=== PATIENT | female | born 1995 | race American Indian/Alaskan Native ===

== ENCOUNTER 2018-11-07 14:12 | Emergency (ER) | payer MEDICAID ==
--- NOTE | 2018-11-07 14:38 | Emergency Department Report ---
Blank Doc - Documentation Documentation: This is a 22-year-old female that presents with right sided lower back pain. Denies any N/V. This initial assessment/diagnostic orders/clinical plan/treatment(s) is/are subject to change based on patient's health status, clinical progression and re- assessment by fellow clinical providers in the ED. Further treatment and workup at subsequent clinical providers discretion. Patient/guardians urged not to elope from the ED as their condition may be serious if not clinically assessed and managed. Initial orders include: 1- Patient sent to [facility] for further evaluation and treatment 2- UA 3- labs
[2018-11-07 14:50] LABS: Basophils % (Auto) 0.6 % (0.0-1.8); Eosinophils # (Auto) 0.1 K/mm3 (0.0-0.4); Eosinophils % (Auto) 1.2 % (0.0-4.3); Hematocrit 36.4 % (30.3-42.9); Lymphocytes # (Auto) 2.3 K/mm3 (1.2-5.4); Lymphocytes % (Auto) 31.3 % (13.4-35.0); Mean Corpuscular HGB Conc 36 % (30-34); Mean Corpuscular Volume 90 fl (79-97); Monocytes # (Auto) 0.6 K/mm3 (0.0-0.8); Monocytes % (Auto) 8.9 % (0.0-7.3); Platelet Count 246 K/mm3 (140-440); Red Blood Count 4.06 M/mm3 (3.65-5.03); Red Cell Distribution Width 12.3 % (13.2-15.2)
[2018-11-07 15:07] LABS: Alanine Aminotransferase 14 units/L (7-56); Albumin 4.3 g/dL (3.9-5); BUN/Creatinine Ratio 16; Blood Urea Nitrogen 8 mg/dL (7-17); Calcium 9.2 mg/dL (8.4-10.2); Hemolysis Index 13
[2018-11-07 15:10] LABS: Bilirubin,Direct < 0.2 mg/dL (0-0.2)
[2018-11-07 17:05] LABS: Bilirubin,Urine NEG (Negative); Blood,Urine NEG (Negative); Color,Urine Yellow (Yellow); Mucus,Urine FEW /HPF; Protein,Urine <15 mg/dL mg/dL (Negative); Urobilinogen,Urine < 2.0 mg/dL (<2.0)
[2018-11-07 17:07] LABS: HCG Qualitative,Urine Negative (Negative)
--- NOTE | 2018-11-07 18:02 | Emergency Department Report ---
ED Abdominal Pain HPI - General Chief Complaint: Abdominal Pain Stated Complaint: STOMACH PAIN Time Seen by Provider: 11/07/18 14:33 Source: patient Mode of arrival: Ambulatory Limitations: No Limitations - History of Present Illness Initial Comments: This is a 22 year-old who presents to ED complaining of low pelvic cramping and a menorrhea 4 months. Patient states that her last menstrual period was June 2018. Patient states that cramping like pain is localized to her low pelvic region. Patient describes pain as aching intermittently has been going on for the past 2-3 months. Patient states she state couple of home tests that were negative. Patient presents to be evaluated. She denies nausea/vomiting/dysuria/vaginal discharge/dizziness/chest pain/shortness of breath such fever/diarrhea or any other problems. -: Gradual Radiation: none Migration to: no migration Severity scale (0 -10): 9 Quality: aching - Related Data Previous Rx's Medication Instructions Recorded Last Taken Type Ibuprofen [Motrin] 800 mg PO Q8HR #20 tablet 11/07/18 Unknown Rx Allergies Allergy/AdvReac Type Severity Reaction Status Date / Time amoxicillin Allergy Unknown Verified 11/07/18 14:13 Penicillins Allergy Unknown Verified 11/07/18 14:14 ED Review of Systems ROS: Stated complaint: STOMACH PAIN Other details as noted in HPI Comment: All other systems reviewed and negative ED Past Medical Hx - Past Medical History Hx Hypertension: Yes - Surgical History Past Surgical History?: No - Social History Smoking Status: Never Smoker Substance Use Type: None - Medications Home Medications: Home Medications Medication Instructions Recorded Confirmed Last Taken Type Ibuprofen [Motrin] 800 mg PO Q8HR #20 tablet 11/07/18 Unknown Rx ED Physical Exam - General Limitations: No Limitations General appearance: alert, in no apparent distress - Head Head exam: Present: atraumatic, normocephalic - Eye Eye exam: Present: normal appearance - ENT ENT exam: Present: mucous membranes moist - Neck Neck exam: Present: normal inspection - Respiratory Respiratory exam: Present: normal lung sounds bilaterally. Absent: respiratory distress, wheezes - Cardiovascular Cardiovascular Exam: Present: regular rate, normal rhythm. Absent: systolic murmur, diastolic murmur, rubs, gallop - GI/Abdominal GI/Abdominal exam: Present: soft, normal bowel sounds. Absent: distended, tenderness, guarding, mass - Extremities Exam Extremities exam: Present: normal inspection - Back Exam Back exam: Present: normal inspection - Neurological Exam Neurological exam: Present: alert, oriented X3 - Psychiatric Psychiatric exam: Present: normal affect, normal mood - Skin Skin exam: Present: warm, dry, intact, normal color. Absent: rash ED Course Vital Signs 11/07/18 14:34 Temperature 98.2 F Pulse Rate 83 Respiratory 18 Rate Blood Pressure 120/68 O2 Sat by Pulse 97 Oximetry ED Medical Decision Making - Lab Data Result diagrams: 11/07/18 14:41 11/07/18 14:41 - Medical Decision Making This is a 22-year-old female who presents to ED for chronic pelvic pain Patient is not on any form of control. Blood tests negative for , although is within normal limits. Discussed findings with the patient. Discussed to follow up with [facility] as referred. Patient is in no acute distress she understands instructions and is to follow Critical care attestation.: If time is entered above; I have spent that time in minutes in the direct care of this critically ill patient, excluding procedure time. ED Disposition Clinical Impression: Amenorrhea, secondary Disposition: DC-01 TO HOME OR SELFCARE Is pt being admited?: No Does the pt Need Aspirin: No Condition: Stable Instructions: Abdominal Pain (ED), Female [employer] (ED), Chronic Pelvic Pain in Women (ED) Additional Instructions: Make sure to follow up with the primary care physician as discussed. Take all your medications as you've been prescribed. If you have any worsening symptoms or develop new symptoms please return to ED immediately. Prescriptions: Ibuprofen [Motrin] 800 mg PO Q8HR #20 tablet Referrals: [facility] [Other] - 3-5 Days RAH MESA MD [Referring] - 3-5 Days Forms: Accompanied Note, Work/School Release Form(ED) Time of Disposition: 18:10
[2018-11-07 18:29] VITALS: BP 123/77
== END 2018-11-07 18:26 | disposition home or self-care (01) ==
LOC: ED 14:12
DX: N91.1 Secondary amenorrhea (principal)
CPT/HCPCS: 36415; 80048; 80076; 81001; 81025; 83690; 84702; 85025

== ENCOUNTER 2020-10-28 14:02 | Emergency (ER) | payer SELFPAY ==
[2020-10-28 14:32] VITALS: BP 125/77
--- NOTE | 2020-10-28 16:08 | Emergency Department Report ---
ED Female HPI - General Chief complaint: Urogenital-Female Stated complaint: STD/ABD PAIN Time Seen by Provider: 10/28/20 15:16 Source: patient Mode of arrival: Ambulatory Limitations: No Limitations - History of Present Illness Initial comments: 24-year-old female with no significant past medical history presents to the ER today with complaints of 2-week white vaginal discharge. She reports associated intermittent lower abdominal/pelvic pain. She denies any new sexual partner but she is concerned for possible STD.. She denies any UTI symptoms. She states that the last time she had a menstrual cycle was in June 2020. She recently started spotting intermittently 2 weeks ago. She has not taken a home test. She states that she does not have an [employer] because she does not have insurance. She was on Depo but that was 3 years ago. She is Ab0. Complaint: vaginal discharge, pelvic pain - Related Data Previous Rx's Medication Instructions Recorded Last Taken Type Ibuprofen [Motrin] 800 mg PO Q8HR #20 tablet 11/07/18 Unknown Rx Ketorolac [Toradol] 10 mg PO Q8H PRN #20 tablet 12/20/18 Unknown Rx Ondansetron [Zofran Odt] 4 mg PO Q6HR #20 tab.rapdis 12/20/18 Unknown Rx Sulfamethoxazole/Trimethoprim 1 each PO Q12H #20 tablet 12/20/18 Unknown Rx [Bactrim DS TAB] Allergies Allergy/AdvReac Type Severity Reaction Status Date / Time amoxicillin Allergy Unknown Verified 12/20/18 19:35 Penicillins Allergy Unknown Verified 12/20/18 19:35 ED Review of Systems ROS: Stated complaint: STD/ABD PAIN Other details as noted in HPI Comment: All other systems reviewed and negative Constitutional: denies: chills, fever Eyes: denies: eye pain, eye discharge, vision change ENT: denies: ear pain, throat pain Respiratory: denies: cough, shortness of breath, SOB with exertion, SOB at rest, wheezing Cardiovascular: denies: chest pain, palpitations Endocrine: no symptoms reported Gastrointestinal: abdominal pain, nausea, vomiting Genitourinary: abnormal menses. denies: urgency, dysuria, frequency, hematuria, discharge Musculoskeletal: denies: back pain, joint swelling, arthralgia Skin: denies: rash, lesions, change in color, change in hair/nails, pruritus Neurological: denies: headache, weakness, numbness, paresthesias, abnormal gait, vertigo Psychiatric: denies: anxiety, depression Hematological/Lymphatic: denies: easy bleeding, easy bruising ED Past Medical Hx - Past Medical History Hx Hypertension: Yes Hx Asthma: Yes - Social History Smoking Status: Current Every Day Smoker - Medications Home Medications: Home Medications Medication Instructions Recorded Confirmed Last Taken Type Ibuprofen [Motrin] 800 mg PO Q8HR #20 tablet 11/07/18 Unknown Rx Ketorolac [Toradol] 10 mg PO Q8H PRN #20 tablet 12/20/18 Unknown Rx Ondansetron [Zofran Odt] 4 mg PO Q6HR #20 tab.rapdis 12/20/18 Unknown Rx Sulfamethoxazole/Trimethoprim 1 each PO Q12H #20 tablet 12/20/18 Unknown Rx [Bactrim DS TAB] ED Physical Exam - General Limitations: No Limitations General appearance: alert, in no apparent distress - Head Head exam: Present: atraumatic, normocephalic - Respiratory Respiratory exam: Present: normal lung sounds bilaterally. Absent: respiratory distress - Cardiovascular Cardiovascular Exam: Present: regular rate, normal rhythm, normal heart sounds - GI/Abdominal GI/Abdominal exam: Present: soft, tenderness (Mild tenderness to palpation mainly suprapubic area without rebound or guarding.). Absent: distended, guarding, rebound, rigid - External exam: Present: normal external exam Speculum exam: Present: vaginal discharge (Whitish-yellow moderate amount), cervical discharge. Absent: vaginal bleeding Bi-manual exam: Present: cervical motion tendernes (Mild), adnexal tenderness (Bilateral). Absent: adnexal mass, uterine enlargement, uterine tenderness - Neurological Exam Neurological exam: Present: alert, oriented X3, CN II-XII intact, normal gait - Psychiatric Psychiatric exam: Present: normal affect, normal mood - Skin Skin exam: Present: intact ED Course Vital Signs 10/28/20 14:21 Temperature 98.8 F Pulse Rate 90 Respiratory 18 Rate Blood Pressure 125/77 O2 Sat by Pulse 100 Oximetry ED Medical Decision Making - Lab Data Result diagrams: 10/28/20 17:13 10/28/20 17:13 - Medical Decision Making 24-year-old female with no significant past medical history presents to the ER today with complaints of 2-week white vaginal discharge. She reports associated intermittent lower abdominal/pelvic pain. She denies any new sexual partner but she is concerned for possible STD.. She denies any UTI symptoms. She states that the last time she had a menstrual cycle was in June 2020. She recently started spotting intermittently 2 weeks ago. She has not taken a home test. She states that she does not have an [employer] because she does not have insurance. She was on Depo but that was 3 years ago. She is Ab0. 2030: Patient currently resting comfortably, is on her phone, and she is not in any acute distress. Labs reviewed with patient, she is with ultrasound showing IUP measuring around 9 weeks and 1 day. She is A positive and therefore no indication for RhoGam at this time. She was treated prophylactically for gonorrhea and chlamydia. Wet prep was negative for yeast, BV or trichomoniasis. Her vital signs are stable. There is no indication no indication for any further work-up/testing, admission or emergent consult at this time. Discussed lab and ultrasound results with patient. Discussed diagnosis with patient, informed that she will need to follow-up with [facility] in the next week. Discussed worsening signs and symptoms to return to the ER for. Patient expressed understanding of instructions and agree with plan. Patient was stable at time of discharge Critical care attestation.: If time is entered above; I have spent that time in minutes in the direct care of this critically ill patient, excluding procedure time. ED Disposition Clinical Impression: Threatened miscarriage Disposition: DC- TO HOME OR SELFCARE Is pt being admited?: No Does the pt Need Aspirin: No Condition: Stable Instructions: Threatened Miscarriage, [id number] Additional Instructions: You can take tylenol as needed for pain. You were treated prophylactically today for gonorrhea and chlamydia. The results of your test should be back in 3 to 4 days and you will be notified of the test results. Your partner may need to be tested and treated as well especially if your test results come back positive. It is important that you follow up with OBGYN in 1 week. Return to ED if symptoms worsens. Referrals: [facility] [Provider Group] - 3-5 Days [id number] [Provider Group] - 3-5 Days Time of Disposition: 20:29
[2020-10-28] MEDS ORDERED: LIDOCAINE-MPF (1%) 10 MG/1 ML VIAL 5 ML INFILTRATI ONE (16:22)
[2020-10-28 16:56] LABS: HCG Qualitative,Urine Positive (Negative)
[2020-10-28] MEDS ORDERED: ACETAMINOPHEN 325 MG TAB PO ONE (17:01)
[2020-10-28] MEDS ORDERED: AZITHROMYCIN 250 MG TAB PO ONE (17:01)
[2020-10-28] MEDS ORDERED: ONDANSETRON 4 MG ODT TAB PO ONE (17:01)
[2020-10-28 17:05] LABS: Bilirubin,Urine NEG (Negative); Blood,Urine SM (Negative); Color,Urine Yellow (Yellow); Mucus,Urine 3+ /HPF; Urobilinogen,Urine < 2.0 mg/dL (<2.0)
[2020-10-28] MEDS ORDERED: WATER FOR INJ Sterile (PF) 10 ML ONE (17:08)
[2020-10-28 17:37] LABS: Basophils % (Auto) 0.4 % (0.0-1.8); Eosinophils % (Auto) 0.3 % (0.0-4.3); Hematocrit 34.8 % (30.3-42.9); Hemoglobin 12.2 gm/dl (10.1-14.3); Lymphocytes # (Auto) 2.1 K/mm3 (1.2-5.4); Mean Corpuscular HGB Conc 35 % (30-34); Mean Corpuscular Volume 94 fl (79-97); Monocytes # (Auto) 0.6 K/mm3 (0.0-0.8); Monocytes % (Auto) 8.5 % (0.0-7.3); Platelet Count 211 K/mm3 (140-440); Red Blood Count 3.72 M/mm3 (3.65-5.03); Red Cell Distribution Width 12.8 % (13.2-15.2)
[2020-10-28 17:55] LABS: Alanine Aminotransferase 7 units/L (7-56); Albumin 4.4 g/dL (3.9-5); Blood Urea Nitrogen 6 mg/dL (7-17); Calcium 8.6 mg/dL (8.4-10.2); Hemolysis Index 3
[2020-10-28 18:04] LABS: BUN/Creatinine Ratio 20
--- NOTE | 2020-10-28 20:20 | Ultrasound Report ---
ULTRASOUND OBSTETRIC REASON FOR EXAM: Pelvic pain//vaginal spotting TECHNIQUE: Transabdominal and transvaginal ultrasound was performed to evaluate a first trimester pre gnancy. COMPARISON: None available. FINDINGS: FINDINGS: The pole, yolk sac, and gestational sac are normal in appearance. [place]-rump length: 24.6 mm. This corresponds with a gestational age of 9 weeks 1 day. heart rate: 180 bpm Perigestational hemorrhage: No evidence of perigestational hemorrhage on the provided images. MATERNAL FINDINGS: The uterus demonstrates an otherwise unremarkable sonographic appearance.. The right ovary demonstrates a normal sonographic appearance. The left ovary demonstrates a normal sonographic appearance. Cul-de-sac: There is no free fluid. IMPRESSION: Viable intrauterine . Gestational age is 9 weeks 1 day by ultrasound. Recommend clinical scr eening and ultrasound follow-up in the second trimester to screen for anomalies. Signer Name: Paul Lindsey MD Signed: 10/28/2020 8:16 PM Workstation Name: [id number]
== END 2020-10-28 21:00 | disposition home or self-care (01) ==
LOC: ED 14:02
DX: O20.0 Threatened abortion (principal); I10 Essential (primary) hypertension; J45.909 Unspecified asthma, uncomplicated; Z3A.09 9 weeks gestation of pregnancy; F17.200 Nicotine dependence, unspecified, uncomplicated; Z79.899 Other long term (current) drug therapy
CPT/HCPCS: 36415; 76801; 80053; 81001; 81025; 84702; 85025; 86900; 86901; 87210; 87591; 96372; 99284; J0696; 76802; Q0162